=== PATIENT | male | born 1940 | race Caucasian/White ===

== ENCOUNTER 2022-08-07 08:47 | Emergency (ER) | payer OTHER ==
[~2022-08-07] VITALS: Ht 185.4 cm; Wt 61.7 kg
[~2022-08-07 08:47] MED LIST: CRUTCH2 USE; DIPH50; HYDMOR2 PO; OXYACE5T PO; OXYC10ER PO; TOBR.3OPSO OP
[2022-08-07 09:16] LABS: BASOPHILS ABSOLUTE AUTO 0.08 K/mm3 (0.00-0.23); BASOPHILS PERCENT AUTO 1 % (0-2); EOSINOPHILS ABSOLUTE AUTO 0.25 K/mm3 (0.00-0.68); EOSINOPHILS PERCENT AUTO 3 % (0-6); Hematocrit 41.9 % (37.0-53.0); Hemoglobin 13.3 g/dL (13.5-17.5); IMMATURE GRAN ABSOLUTE AUTO 0.02 K/mm3 (0.00-0.10); IMMATURE GRAN PERCENT AUTO 0 % (0-1); LYMPHOCYTES ABSOLUTE AUTO 1.55 K/mm3 (0.84-5.20); LYMPHOCYTES PERCENT AUTO 21 % (21-46); MONOCYTES ABSOLUTE AUTO 0.59 K/mm3 (0.16-1.47); MONOCYTES PERCENT AUTO 8 % (4-13); Mean Corpuscular HGB 30.4 pg (26.0-34.0); Mean Corpuscular HGB Conc 31.7 g/dL (31.5-36.5); Mean Corpuscular Volume 96 fL (80-100); Mean Platelet Volume 8.9 fL (9.1-12.4); NEUTROPHILS ABSOLUTE AUTO 5.02 K/mm3 (1.96-9.15); NEUTROPHILS PERCENT AUTO 67 % (41-73); Platelet Count 279 K/mm3 (150-400); RDW Coefficient Variation 14.2 % (11.7-14.2); RDW Standard Deviation 50.3 fL (35.1-46.3); Red Blood Cell Count 4.37 M/mm3 (4.30-5.90); White Blood Cell Count 7.51 K/mm3 (4.00-11.30)
[2022-08-07 09:31] LABS: Bun/Creatinine Ratio 16.6 (12.0-20.0); Calcium, Blood 9.8 mg/dL (8.5-10.1); Creatinine, Blood 0.78 mg/dL (0.60-1.20)
[2022-08-07] MEDS ORDERED: BUPRENORPHINE HC8 MG (10:30)
[2022-08-07] MEDS ORDERED: XARELTO20 MG PO (11:03)
[2022-08-07] MEDS ORDERED: METO25ER PO (11:03)
== END 2022-08-07 11:18 | disposition home or self-care (01) ==
LOC: ER 08:47
PROVIDERS: Student in an Organized Health Care Education/Training Program
DX: I48.92 Unspecified atrial flutter (principal); I10 Essential (primary) hypertension; F17.210 Nicotine dependence, cigarettes, uncomplicated
CPT/HCPCS: 36415; 80048; 83735; 85025; 93005; 93010; A9270; J3475; J7030

== ENCOUNTER → 2023-05-13 | Outpatient (CLI) | payer OTHER | LOC: LAB 06:48 | DX: E78.5 Hyperlipidemia, unspecified (principal) ==

== ENCOUNTER 2023-06-01 09:27 | Emergency (ER) | payer OTHER ==
[~2023-06-01] VITALS: Ht 170.2 cm; Wt 69.8 kg
[~2023-06-01 09:27] MED LIST changes: +BUPRENORPHINE HC8 MG; +METO25ER PO; +XARELTO20 MG PO
[2023-06-01] MEDS ORDERED: WARF5 PO (09:54)
[2023-06-01] MEDS ORDERED: TAMS.4ER PO (09:54)
[2023-06-01] MEDS ORDERED: CALCIUM 600-VI1 EAC7 PO (09:55)
[2023-06-01] MEDS ORDERED: ERLEADA240 MG PO (09:55)
[2023-06-01] MEDS ORDERED: METO25ER PO (09:55)
[2023-06-01] MEDS ORDERED: BUPROPION XL150 M1 PO (09:56)
[2023-06-01] MEDS ORDERED: ATOR20 PO (09:56)
[2023-06-01 10:05] VITALS: BP 113/71
[2023-06-01 10:28] LABS: BASOPHILS ABSOLUTE AUTO 0.06 K/mm3 (0.00-0.23); BASOPHILS PERCENT AUTO 1 % (0-2); EOSINOPHILS ABSOLUTE AUTO 0.12 K/mm3 (0.00-0.68); EOSINOPHILS PERCENT AUTO 1 % (0-6); Hematocrit 38.5 % (37.0-53.0); Hemoglobin 12.7 g/dL (13.5-17.5); IMMATURE GRAN ABSOLUTE AUTO 0.02 K/mm3 (0.00-0.10); IMMATURE GRAN PERCENT AUTO 0 % (0-1); LYMPHOCYTES ABSOLUTE AUTO 1.26 K/mm3 (0.84-5.20); LYMPHOCYTES PERCENT AUTO 15 % (21-46); MONOCYTES ABSOLUTE AUTO 0.84 K/mm3 (0.16-1.47); MONOCYTES PERCENT AUTO 10 % (4-13); Mean Corpuscular HGB 29.7 pg (26.0-34.0); Mean Corpuscular Volume 90 fL (80-100); Mean Platelet Volume 9.6 fL (9.1-12.4); NEUTROPHILS ABSOLUTE AUTO 6.23 K/mm3 (1.96-9.15); NEUTROPHILS PERCENT AUTO 73 % (41-73); Platelet Count 311 K/mm3 (150-400); RDW Coefficient Variation 13.9 % (11.7-14.2); RDW Standard Deviation 45.7 fL (35.1-46.3); Red Blood Cell Count 4.28 M/mm3 (4.30-5.90); White Blood Cell Count 8.53 K/mm3 (4.00-11.30)
[2023-06-01 10:36] LABS: International Normalized Ratio 2.56; Prothrombin Time Results 25.5 Sec (9.7-11.5)
[2023-06-01 11:42] LABS: Calcium, Blood 10.1 mg/dL (8.5-10.1); Creatinine, Blood 1.13 mg/dL (0.60-1.20); Magnesium, Blood 1.8 mg/dL (1.6-2.4); Potassium, Blood 3.9 mmol/L (3.5-5.5)
[2023-06-01 12:45] LABS: Source, Urine Clean Catch
[2023-06-01 12:53] LABS: Appearance, Urine Clear (Clear); Bilirubin, Urine Neg (Neg); Blood, Urine 1+ (Neg); Color, Urine Yellow (P-Yellow); Glucose Qualitative, Urine Neg (Neg); Ketones, Urine 2+ (Neg); Leukocyte Esterase, Urine Neg (Neg); Nitrite, Urine Neg (Neg); Protein, Urine 2+ (Neg); Specific Gravity, Urine 1.025 (1.003-1.022); Urobilinogen, Urine NORM (Normal)
[2023-06-01 13:08] LABS: Bacteria Few /hpf; Hyaline Casts 0-2 /lpf (0-2); Mucus Light (0-Heavy); Red Blood Cells, Urine 0-2 /hpf (0-2); Squamous Epithelial Cells Rare /hpf (Few)
[2023-06-01] MEDS ORDERED: METO50ER PO (13:30)
== END 2023-06-01 13:41 | disposition home or self-care (01) ==
LOC: ER 09:27
PROVIDERS: Student in an Organized Health Care Education/Training Program
DX: I48.92 Unspecified atrial flutter (principal); R53.1 Weakness; Z79.899 Other long term (current) drug therapy; Z79.891 Long term (current) use of opiate analgesic; I10 Essential (primary) hypertension; Z85.118 Personal history of other malignant neoplasm of bronchus and lung; Z85.46 Personal history of malignant neoplasm of prostate; F17.210 Nicotine dependence, cigarettes, uncomplicated
CPT/HCPCS: 80048; 81001; 83735; 85025; 85610; 93005; 93010; 96360; 99285-25; A9270; J7030

== ENCOUNTER 2023-07-14 11:16 | Emergency (ER) | payer OTHER ==
[~2023-07-14] VITALS: Ht 182.9 cm; Wt 55.8 kg
[~2023-07-14 11:16] MED LIST changes: +ATOR20 PO; +BUPROPION XL150 M1 PO; +CALCIUM 600-VI1 EAC7 PO; +ERLEADA240 MG PO; +METO50ER PO; +TAMS.4ER PO; +WARF5 PO
[2023-07-14 12:31] LABS: BASOPHILS ABSOLUTE AUTO 0.02 K/mm3 (0.00-0.23); BASOPHILS PERCENT AUTO 1 % (0-2); EOSINOPHILS ABSOLUTE AUTO 0.03 K/mm3 (0.00-0.68); EOSINOPHILS PERCENT AUTO 1 % (0-6); Hematocrit 36.8 % (37.0-53.0); Hemoglobin 12.1 g/dL (13.5-17.5); IMMATURE GRAN ABSOLUTE AUTO 0.01 K/mm3 (0.00-0.10); IMMATURE GRAN PERCENT AUTO 0 % (0-1); LYMPHOCYTES ABSOLUTE AUTO 0.21 K/mm3 (0.84-5.20); LYMPHOCYTES PERCENT AUTO 7 % (21-46); MONOCYTES ABSOLUTE AUTO 0.66 K/mm3 (0.16-1.47); MONOCYTES PERCENT AUTO 23 % (4-13); Mean Corpuscular HGB 30.1 pg (26.0-34.0); Mean Corpuscular HGB Conc 32.9 g/dL (31.5-36.5); Mean Corpuscular Volume 92 fL (80-100); Mean Platelet Volume 9.5 fL (9.1-12.4); NEUTROPHILS ABSOLUTE AUTO 1.98 K/mm3 (1.96-9.15); NEUTROPHILS PERCENT AUTO 68 % (41-73); Platelet Count 213 K/mm3 (150-400); RDW Coefficient Variation 15.4 % (11.7-14.2); RDW Standard Deviation 51.2 fL (35.1-46.3); Red Blood Cell Count 4.02 M/mm3 (4.30-5.90); White Blood Cell Count 2.91 K/mm3 (4.00-11.30)
[2023-07-14 12:52] LABS: Albumin, Blood 3.2 g/dL (3.4-5.0); Albumin/Globulin Ratio 1.2 (0.8-1.8); Bilirubin, Total 0.4 mg/dL (0.1-1.0); Bun/Creatinine Ratio 16.6 (12.0-20.0); Calcium, Blood 8.7 mg/dL (8.5-10.1); Creatinine, Blood 0.78 mg/dL (0.60-1.20); Globulin, Blood 2.7 g/dL (2.2-4.0); Potassium, Blood 3.6 mmol/L (3.5-5.5); Total Protein, Blood 5.9 g/dL (6.4-8.2)
[2023-07-14 15:47] LABS: Source, Urine Straight Cath
[2023-07-14 15:52] LABS: International Normalized Ratio 1.9; Prothrombin Time Results 19.2 Sec (9.7-11.5)
[2023-07-14 16:08] LABS: Appearance, Urine Clear (Clear); Bilirubin, Urine Neg (Neg); Blood, Urine 1+ (Neg); Color, Urine Yellow (P-Yellow); Glucose Qualitative, Urine Neg (Neg); Ketones, Urine 1+ (Neg); Leukocyte Esterase, Urine Neg (Neg); Nitrite, Urine Neg (Neg); Protein, Urine 2+ (Neg); Urobilinogen, Urine NORM (Normal)
[2023-07-14 16:28] LABS: Influenza A, PCR NEGATIVE (NEGATIVE); Influenza B, PCR NEGATIVE (NEGATIVE); Resp Syncytial Virus, PCR NEGATIVE (NEGATIVE)
[2023-07-14 16:59] LABS: SARS-Cov-2 (COVID-19) PCR, MMC POSITIVE (NEGATIVE)
[2023-07-14 17:15] VITALS: BP 119/73
[2023-07-14 17:17] LABS: Amorphous Light (0-Heavy); Bacteria Few /hpf; Calcium Oxalate Crystals Few /hpf; Hyaline Casts 0-2 /lpf (0-2); Mucus Light (0-Heavy); Squamous Epithelial Cells Rare /hpf (Few)
[2023-07-14] MEDS ORDERED: ENSURE PLUS HI237 ML PO (18:12)
== END 2023-07-14 19:22 | disposition home or self-care (01) ==
LOC: ER 11:16
PROVIDERS: Emergency Medicine; Physician Assistant
DX: U07.1 COVID-19 (principal); R53.1 Weakness; D72.819 Decreased white blood cell count, unspecified; R63.0 Anorexia; D72.821 Monocytosis (symptomatic); I48.92 Unspecified atrial flutter; I44.30 Unspecified atrioventricular block; I49.1 Atrial premature depolarization; C61 Malignant neoplasm of prostate; F17.210 Nicotine dependence, cigarettes, uncomplicated; Z68.1 Body mass index [BMI] 19.9 or less, adult; Z88.8 Allergy status to other drugs, medicaments and biological substances; Z79.899 Other long term (current) drug therapy; Z79.01 Long term (current) use of anticoagulants
CPT/HCPCS: 0241U; 51701; 71046; 80053; 81001; 83880; 84484; 85025; 85610; 93005; 93010; 99285-25

== ENCOUNTER 2023-07-30 11:41 | Observation (INO) | payer OTHER ==
[~2023-07-30] VITALS: Ht 182.9 cm; Wt 51.6 kg
[~2023-07-30 11:41] MED LIST changes: +ENSURE PLUS HI237 ML PO
[2023-07-30 12:43] LABS: Hematocrit 36.1 % (37.0-53.0); Hemoglobin 11.9 g/dL (13.5-17.5); Mean Corpuscular HGB 30.7 pg (26.0-34.0); Mean Corpuscular Volume 93 fL (80-100); Mean Platelet Volume 9.3 fL (9.1-12.4); Platelet Count 260 K/mm3 (150-400); RDW Coefficient Variation 17.5 % (11.7-14.2); RDW Standard Deviation 57.1 fL (35.1-46.3); Red Blood Cell Count 3.87 M/mm3 (4.30-5.90); White Blood Cell Count 5.25 K/mm3 (4.00-11.30)
[2023-07-30 12:53] LABS: Albumin, Blood 2.9 g/dL (3.4-5.0); Albumin/Globulin Ratio 1.1 (0.8-1.8); Bilirubin, Total 0.4 mg/dL (0.1-1.0); Bun/Creatinine Ratio 19.6 (12.0-20.0); Calcium, Blood 8.8 mg/dL (8.5-10.1); Creatinine, Blood 0.87 mg/dL (0.60-1.20); Globulin, Blood 2.7 g/dL (2.2-4.0); Potassium, Blood 4.3 mmol/L (3.5-5.5); Total Protein, Blood 5.6 g/dL (6.4-8.2)
[2023-07-30 13:06] LABS: BASOPHILS PERCENT MAN 0 % (0-2); EOSINOPHILS ABSOLUTE MAN 0.26 K/mm3 (0.00-0.68); EOSINOPHILS PERCENT MAN 5 % (0-6); LYMPHOCYTES ABSOLUTE MAN 0.42 K/mm3 (0.84-5.20); LYMPHOCYTES PERCENT MAN 8 % (21-46); MONOCYTES ABSOLUTE MAN 0.42 K/mm3 (0.16-1.47); MONOCYTES PERCENT MAN 8 % (4-13); NEUTROPHILS ABSOLUTE MAN 4.14 K/mm3 (1.96-9.15); SEG NEUTROPHILS PERCENT MAN 79 % (41-73); TOTAL CELLS COUNTED 100
[2023-07-30 13:31] LABS: International Normalized Ratio 1.55; Prothrombin Time Results 15.9 Sec (9.7-11.5)
--- NOTE | 2023-07-30 20:40 | NUR ---
NEW ADMIT PT ARRIVED TO ROOM 303 AT 2039 FROM THE ER BY JULIA. PT TRANSFERED TO HOSPITAL BED WITH TRANSFER SHEET AND 4 PERSON ASSIST. PT CAME WITH FLUIDS RUNNING-SEE EMAR.
[2023-07-30 20:46] VITALS: BP 158/97
[2023-07-31 03:38] VITALS: BP 120/55
--- NOTE | 2023-07-31 04:30 | NUR ---
HOSPITAL CALLED. DR. GARCIA CALLED REGARDING PT HAVING PELVIC/ABD PAIN. PT REPORTS THE NEED TO URINATE BUT IS UNABLE. PT REPORTS THAT HE STRAIGHT CATHS HIMSELF AT HOME 5X A DAY. DR. GARCIA ORDERED FOR AN IUC.
[2023-07-31 05:57] LABS: Source, Urine Foley catheter
[2023-07-31 06:14] LABS: Appearance, Urine Clear (Clear); Bilirubin, Urine Neg (Neg); Blood, Urine 4+ (Neg); Color, Urine Yellow (P-Yellow); Glucose Qualitative, Urine Neg (Neg); Ketones, Urine Neg (Neg); Leukocyte Esterase, Urine Neg (Neg); Nitrite, Urine Neg (Neg); Protein, Urine 2+ (Neg); Urobilinogen, Urine NORM (Normal)
[2023-07-31 06:33] LABS: Bacteria Few /hpf; Red Blood Cells, Urine 25-50 /hpf (0-2); Squamous Epithelial Cells Few /hpf (Few); White Blood Cells, Urine 0-2 /hpf (0-5)
[2023-07-31 07:23] VITALS: BP 110/45
--- NOTE | 2023-07-31 07:40 | NUR ---
SHIFT SUMMARY PT IS A&O X4. PT IS COOPERATIVE WITH CARE AND PLEASANT. PT HAS A HISTORY OF URINARY RETENTION AND STRAIGHT CATHS AT HOME-ZALDIVAR PLACED THIS AM PER ORDER. PT IS ABLE TO MOVE FROM SIDE TO SIDE IN BED. PT IS TREMOROUS, AND C/O BEING COLD-NO FEVER NOTED. PT DENIES CHEST PAIN/PRESSURE/TIGHTNESS. PT HAS HAD LOOSE BMS THIS SHIFT-ATTENDS CLEAN AND IN PLACE. PT LIVES AT HOME WITH SIGNIFICANT OTHER. PTS ARMS HAS SIGNIFICANT EDEMA AND LEAKS OUT FLUID. BED IS LOCKED AND IN THE LOWEST POSITION WITH CALL LIGHT IN REACH.
[2023-07-31 11:22] LABS: BASOPHILS ABSOLUTE AUTO 0.04 K/mm3 (0.00-0.23); BASOPHILS PERCENT AUTO 1 % (0-2); EOSINOPHILS ABSOLUTE AUTO 0.51 K/mm3 (0.00-0.68); EOSINOPHILS PERCENT AUTO 10 % (0-6); Hematocrit 34.2 % (37.0-53.0); Hemoglobin 11.3 g/dL (13.5-17.5); IMMATURE GRAN ABSOLUTE AUTO 0.01 K/mm3 (0.00-0.10); IMMATURE GRAN PERCENT AUTO 0 % (0-1); LYMPHOCYTES ABSOLUTE AUTO 0.28 K/mm3 (0.84-5.20); LYMPHOCYTES PERCENT AUTO 6 % (21-46); MONOCYTES ABSOLUTE AUTO 0.51 K/mm3 (0.16-1.47); MONOCYTES PERCENT AUTO 10 % (4-13); Mean Corpuscular HGB 30.6 pg (26.0-34.0); Mean Corpuscular Volume 93 fL (80-100); Mean Platelet Volume 8.9 fL (9.1-12.4); NEUTROPHILS ABSOLUTE AUTO 3.69 K/mm3 (1.96-9.15); NEUTROPHILS PERCENT AUTO 73 % (41-73); Platelet Count 213 K/mm3 (150-400); RDW Coefficient Variation 17.2 % (11.7-14.2); RDW Standard Deviation 56.9 fL (35.1-46.3); Red Blood Cell Count 3.69 M/mm3 (4.30-5.90); White Blood Cell Count 5.04 K/mm3 (4.00-11.30)
[2023-07-31 11:36] LABS: International Normalized Ratio 1.55; Prothrombin Time Results 15.9 Sec (9.7-11.5)
[2023-07-31 11:41] LABS: Bun/Creatinine Ratio 15.9 (12.0-20.0); Calcium, Blood 8.4 mg/dL (8.5-10.1); Creatinine, Blood 0.82 mg/dL (0.60-1.20); Phosphorus, Blood 2.7 mg/dL (2.5-4.9); Potassium, Blood 3.7 mmol/L (3.5-5.5)
[2023-07-31 15:56] VITALS: BP 118/61
--- NOTE | 2023-07-31 18:38 | NUR ---
SHIFT SUMMARY: PATIENT IS A/OX4. CALM, PLEASANT AND COOPERATIVE c CARE PROVIDED. VISIBLE TREMORS TO BUE'S. EDEMA TO BUE'S VERY DRY FLAKY AND SKIN CRACKING c MODERATE SEROSANGUINEOUS DRAINAGE COMING OUT AND RASHES SCATTERED T/O. PATIENT DENIES ITCHINESS TO AFFECTED SITE. DR. OCAMPO (ERP CONSULTANT) CAME AND SAW PATIENT TODAY FOR CONSULT. SKIN BIOPSY WAS DONE BY DR. OCAMPO, AND CULTURE TO RASH BUE'S WAS SENT OUT TO LAB AWATING FOR RESULT. RECEIVED A CALL FROM SIG OTHER NAME DENIS, UPDATE GIVEN TO DENIS. PER DENIS "WHEN PATIENT FIRST DAY THE RASH APPEARS TO BUE'S HE WAS USING HER OIL OF OLAY FIRMING LOTION c SCENTED." DENIS ADDED SINCE THEN PATIENT ARMS APPEARS MORE ANGRY LOOKING AND THE LOTION DID NOT HELPS." PATIENT IS INCONTINENCE OF BOWELS, JUSTICE CARE AND ATTENDS CHANGED PRN. PATIENT HAD VENOUS DUPLEX STUDY TO BUE'S DONE THIS PM, PER HARMAN ([facility]) "PATIENT IS POSITIVE FOR DVT TO L BRACHIAL ARM AND NO SUPERFACIAL THROMBUS NOTED." NOTIFIED DR. LIZARRAGA c THIS CONCERN, DISCHARGE ORDER WAS HELD. ZALDIVAR WAS DC'D AT AROUND 1750. PATIENT RECEIVED 10 MG OF PO WARFARIN AT 1800'S. PATIENT DENIES CP/PRESSURE, SOB, N/V, DIZZINESS AND GENERALIZED PAIN. PATIENT WORKS c PT MOBILITY THIS AM. PER PT DC'D HOME PRIOR TO LIVING SITUATION c NO FURTHER FOLLOW UP TX. VITAL SIGNS REVIEWED. PIV TO HOA SALINE LOCKED. CALL LIGHT IN REACH.
[2023-07-31 19:06] VITALS: BP 107/71
--- NOTE | 2023-08-01 03:37 | NUR ---
HOSPITALIST CALLED. DR. GARCIA CALLED APPROX 0245 FOR PATIENTS URINARY RETENTION, PT STATES HE STRAIGHT CATHS AT HOME, AND HIS ZALDIVAR WAS ROMOVED ON 07/31/23. ASKED DOCTOR IF WE COULD STRAIGHT CATH PATIENT PRN FOR SYMPTOMS OF RETENTION. DOCTOR GARCIA ORDERED FOR Q6H STRAIGHT CATH FOR BLADDER SCAN VOLUME >200ML OR SYMPTOMS OF URINARY RETENTION, AND BLADDER SCAN Q6H PRN.
[2023-08-01 03:52] VITALS: BP 113/75
--- NOTE | 2023-08-01 05:45 | NUR ---
SHIFT SUMMARY PATIENT IS A&O X4, COOPERATIVE WITH CARE, PLEASANT, ABLE TO MAKE NEEDS KNOW, AND CALLS APPROPRIATELY. PATIENT STATES HE FEELS BETTER THAN HE DID YESTERDAY. PATIENT HAS SLET OFF AND ON T/O SHIFT WITH RESPIRATIONS EQUAL AND UNLABORED. STOOLS HAVE BEEN LOOSE THIS SHIFT. PT REPORTS THAT HIS TREMORS HAVE DECREASED SINCE ADMITTANCE. DENIES CHEST PAIN/PRESSURE/TIGHTNESS. PAIN ASSESSED-PATIENT KALA PAIN. BED IS LOCKED IN THE LOWEST POSITION WITH CALL LIGHT IN REACH FOR SAFETY. NO S/S OF DISTRESS NOTED AT THIS TIME.
[2023-08-01 06:18] LABS: International Normalized Ratio 1.91; Prothrombin Time Results 19.3 Sec (9.7-11.5)
[2023-08-01 07:10] VITALS: BP 106/65
[2023-08-01] MEDS ORDERED: ENSURE PLUS HI237 ML PO (10:06)
[2023-08-01] MEDS ORDERED: TRIDERM28.4 GM TOP (10:10)
[2023-08-01] MEDS ORDERED: VISBIOME 112.51 EACH PO (10:11)
[2023-08-01] MEDS ORDERED: Keflex500 MG PO (10:12)
--- NOTE | 2023-08-01 12:47 | NUR ---
SHIFT/DISCHARGE SUMMARY: PATIENT IS A/OX4. CALM, PLEASANT AND COOPERATIVE c CARE PROVIDED. PATIENT DENIES CP/PRESSURE, SOB, N/V AND DIZZINESS. VISIBLE TREMORS TO BUE'S. RASHES AND SWELLING TO BUE'S SLIGHT IMPROVEMENT TODAY COMPARED YESTERDAY. PATIENT AMBULATES TO BATHROOM c SBA, SHOWERED AND LINEN CHANGED. TOP CREAM APPLIED TO RASHES PER ORDER. PATIENT RECEIVED SCHEDULED MEDS PER EMAR. PATIENT IS EATING AND DRINKING WELL. VITAL SIGNS REVIEWED. PIV TO HOA WAS DC'D BY AP PARRA. PATIENT DISCHARGE HOME. DISCHARGE INSTRUCTIONS PACKET GIVEN TO PATIENT. EDUCATE PATIENT REGARDING ADMITTING DX'S OF DRUG EXANTHEM, S/S, TX, TO FOLLOW c DR. OCAMPO (NET LEAD DEVELOPER) TOMORROW 08/02/23 AT 1230, INR CHECK IN 2 DAYS c PCP, SELF CARE AND TO TAKE MEDICATIONS PRESCRIBED. PATIENT AND DENIS (SIG OTHER) VERBALIZED UNDERSTANDING AND NO FURTHER QUESTIONS. RX WAS FAXED TO PATIENT PREFERRED PHARMACY ([facility]). ALL PATIENT PERSONAL BELONGINGS WERE SENT HOME c THE PATIENT. PATIENT LEFT THE ROOM AT AROUND 1205 AND WAS TRANSPORTED VIA WHEELCHAIR BY THIS RN TO PATIENT ENTRANCE.
== END 2023-08-01 12:05 | disposition home or self-care (01) ==
LOC: ER 11:41 → MEDS 11:42 → ER 07-31 16:50 → MEDS 07-31 16:50
PROVIDERS: Emergency Medicine; Student in an Organized Health Care Education/Training Program; ADMIT Internal Medicine
DX: L27.0 Generalized skin eruption due to drugs and medicaments taken internally (principal); I48.92 Unspecified atrial flutter; E87.20 Acidosis, unspecified; E44.0 Moderate protein-calorie malnutrition; L03.116 Cellulitis of left lower limb; L03.115 Cellulitis of right lower limb; I82.622 Acute embolism and thrombosis of deep veins of left upper extremity; I48.20 Chronic atrial fibrillation, unspecified; N13.8 Other obstructive and reflux uropathy; Z68.1 Body mass index [BMI] 19.9 or less, adult; Z66 Do not resuscitate; B08.8 Other specified viral infections characterized by skin and mucous membrane lesions; N40.1 Benign prostatic hyperplasia with lower urinary tract symptoms; F17.210 Nicotine dependence, cigarettes, uncomplicated; R33.8 Other retention of urine; T37.5X5A Adverse effect of antiviral drugs, initial encounter; I10 Essential (primary) hypertension; E78.5 Hyperlipidemia, unspecified; D64.9 Anemia, unspecified; M54.9 Dorsalgia, unspecified; G89.29 Other chronic pain; Z98.890 Other specified postprocedural states; Z88.8 Allergy status to other drugs, medicaments and biological substances; Z79.899 Other long term (current) drug therapy; Z85.46 Personal history of malignant neoplasm of prostate; Z79.01 Long term (current) use of anticoagulants; Z85.118 Personal history of other malignant neoplasm of bronchus and lung
CPT/HCPCS: 11104; 36415; 51702; 80048; 80053; 81001; 83605; 83735; 84100; 84145; 85025; 85610; 85651; 86140; 87070; 87077; 87186; 87205; 88305; 88312; 88313; 93005; 93010; 93970; 96361; 96365; 96376; 97161; 99285-25; A9270; G0378; J0696; J7030

== ENCOUNTER 2025-01-09 09:00 | Inpatient (IN) | payer OTHER ==
[~2025-01-09] VITALS: Ht 185.4 cm; Wt 54.6 kg
[~2025-01-09 09:00] MED LIST changes: +Keflex500 MG PO; +TRIDERM28.4 GM TOP; +VISBIOME 112.51 EACH PO
[2025-01-09] MEDS ORDERED: Aspirin 325 MG Tab PO ONE (09:20)
[2025-01-09 09:33] LABS: BASOPHILS ABSOLUTE AUTO 0.02 K/mm3 (0.00-0.23); BASOPHILS PERCENT AUTO 0 % (0-2); EOSINOPHILS ABSOLUTE AUTO 0.01 K/mm3 (0.00-0.68); EOSINOPHILS PERCENT AUTO 0 % (0-6); Hematocrit 43.6 % (37.0-53.0); Hemoglobin 14.1 g/dL (13.5-17.5); IMMATURE GRAN ABSOLUTE AUTO 0.04 K/mm3 (0.00-0.10); IMMATURE GRAN PERCENT AUTO 0 % (0-1); LYMPHOCYTES ABSOLUTE AUTO 0.46 K/mm3 (0.84-5.20); LYMPHOCYTES PERCENT AUTO 5 % (21-46); MONOCYTES ABSOLUTE AUTO 0.91 K/mm3 (0.16-1.47); MONOCYTES PERCENT AUTO 10 % (4-13); Mean Corpuscular HGB 31.6 pg (26.0-34.0); Mean Corpuscular HGB Conc 32.3 g/dL (31.5-36.5); Mean Corpuscular Volume 98 fL (80-100); Mean Platelet Volume 8.8 fL (9.1-12.4); NEUTROPHILS PERCENT AUTO 85 % (41-73); Platelet Count 424 K/mm3 (150-400); RDW Coefficient Variation 14.3 % (11.7-14.2); RDW Standard Deviation 51.3 fL (35.1-46.3); Red Blood Cell Count 4.46 M/mm3 (4.30-5.90); White Blood Cell Count 9.54 K/mm3 (4.00-11.30)
[2025-01-09 09:46] LABS: Albumin, Blood 2.5 g/dL (3.4-5.0); Albumin/Globulin Ratio 0.6 (0.8-1.8); Bilirubin, Total 0.9 mg/dL (0.1-1.0); Bun/Creatinine Ratio 17.7 (12.0-20.0); Calcium, Blood 9.4 mg/dL (8.5-10.1); Creatinine, Blood 0.79 mg/dL (0.60-1.20); Globulin, Blood 4.2 g/dL (2.2-4.0); Total Protein, Blood 6.7 g/dL (6.4-8.2)
[2025-01-09] MEDS ORDERED: MethylPREDNISolone Sod Succ 125 MG Vial IV ONE (10:10)
[2025-01-09] MEDS ORDERED: Ipratropium/Albuterol SulF 2.5-0.5MG/3 ML Amp INH ONE (10:10)
[2025-01-09] MEDS ORDERED: Albuterol 2.5 MG/3 ML VIAL INH SCH (10:15)
[2025-01-09] MEDS ORDERED: Ipratropium Bromide INH 0.02% 0.5 mg/2.5ML Vial INH SCH (10:15)
[2025-01-09 10:22] LABS: Base Excess Venous 11.5 mmol/L; Bicarbonate Venous 32.1 mmol/L (24.0-30.0); PCO2 Venous 61.9 mmHg (38-42); pH Blood Venous 7.38 (7.34-7.37)
[2025-01-09] MEDS ORDERED: Azithromycin 500 MG in NS 250 ML IV ONE (10:25)
[2025-01-09] MEDS ORDERED: CefTRIAXone Sodium 1,000 MG in NS 100 ML IV ONE (10:25)
[2025-01-09] MEDS ORDERED: Diltiazem HCl 5 MG / ML 5ML Vial IV ONE (11:45)
[2025-01-09] MEDS ORDERED: FENTANYL1 EAC7 TOP (12:01)
[2025-01-09] MEDS ORDERED: METO25ER PO (12:02)
[2025-01-09] MEDS ORDERED: LORA10ER PO (12:04)
[2025-01-09] MEDS ORDERED: GABA300 PO (12:04)
[2025-01-09] MEDS ORDERED: OXYC5 PO (12:05)
[2025-01-09] MEDS ORDERED: Lactated Ringer's 1,000 ML IV SCH (12:05)
[2025-01-09] MEDS ORDERED: GEMTESA75 MG PO (12:06)
[2025-01-09 12:13] LABS: Free Thyroxine 1.37 ng/dL (0.70-1.60); Magnesium, Blood 2.2 mg/dL (1.6-2.4); Thyroid Stimulating Hormone 0.753 uIU/mL (0.360-4.800)
[2025-01-09 13:02] LABS: Source, Urine Clean Catch
[2025-01-09 13:06] LABS: Appearance, Urine Hazy (Clear); Blood, Urine 5+ (Neg); Color, Urine Amber (P-Yellow); Glucose Qualitative, Urine Neg (Neg); Ketones, Urine 1+ (Neg); Leukocyte Esterase, Urine 1+ (Neg); Nitrite, Urine Neg (Neg); Protein, Urine 2+ (Neg); Urobilinogen, Urine 1+ (Normal)
[2025-01-09 13:25] LABS: Bilirubin, Urine 1+ (Neg)
[2025-01-09 13:26] LABS: Bacteria Many /hpf; Hyaline Casts 0-2 /lpf (0-2); Mucus Light (0-Heavy); Red Blood Cells, Urine 25-50 /hpf (0-2); Squamous Epithelial Cells Rare /hpf (Few)
[2025-01-09] MEDS ORDERED: Digoxin 0.25 MG in NS 4 ML IV ONE (13:55)
[2025-01-09 14:25] LABS: Prothrombin Time Results >90.0 Sec (9.7-11.5)
[2025-01-09 14:26] LABS: International Normalized Ratio >10.00
[2025-01-09] MEDS ORDERED: Phytonadione 5 MG Tab PO STA (14:34)
[2025-01-09] MEDS ORDERED: Potassium Chl 10MEQ/Water100ML 100 ML IV ONE (14:45)
[2025-01-09] MEDS ORDERED: Potassium Chloride 20 MEQ/15 ML UDC PO ONE (15:30)
[2025-01-09 15:36] LABS: Hematocrit 38.7 % (37.0-53.0); Hemoglobin 12.4 g/dL (13.5-17.5); Mean Corpuscular HGB 31.4 pg (26.0-34.0); Mean Corpuscular Volume 98 fL (80-100); Mean Platelet Volume 9.1 fL (9.1-12.4); Platelet Count 413 K/mm3 (150-400); RDW Coefficient Variation 14.5 % (11.7-14.2); Red Blood Cell Count 3.95 M/mm3 (4.30-5.90); White Blood Cell Count 12.55 K/mm3 (4.00-11.30)
[2025-01-09 18:02] VITALS: BP 102/87
[2025-01-09] MEDS ORDERED: OxyCODONE HCL 5 MG TAB PO PRN (18:25)
[2025-01-09] MEDS ORDERED: Ipratropium/Albuterol SulF 2.5-0.5MG/3 ML Amp INH SCH (18:25)
[2025-01-09] MEDS ORDERED: Albuterol 2.5 MG/3 ML VIAL INH PRN (18:25)
[2025-01-09] MEDS ORDERED: FentaNYL 50 MCG Patch TOP SCH (18:25)
[2025-01-09] MEDS ORDERED: MethylPREDNISolone Sod Succ 125 MG Vial IV SCH (18:34)
[2025-01-09] MEDS ORDERED: Digoxin 0.25 MG/ML 2ML Amp IV SCH (20:00)
[2025-01-09 20:24] LABS: Base Excess Venous 8.6 mmol/L; Bicarbonate Venous 30.8 mmol/L (24.0-30.0); pH Blood Venous 7.41 (7.34-7.37)
[2025-01-09] MEDS ORDERED: Triamcinolone Acet 0.5% Cream 15 gm TOP SCH (21:00)
[2025-01-09] MEDS ORDERED: Lactobacil 2-S.Thermo-Bifido 1 1 Cap PO SCH (21:00)
[2025-01-09] MEDS ORDERED: Gabapentin 300 MG Cap PO SCH (21:00)
[2025-01-09 21:09] VITALS: BP 105/59
[2025-01-09 21:21] VITALS: BP 114/69
[2025-01-09 22:26] LABS: Hematocrit 37.3 % (37.0-53.0); Hemoglobin 12.1 g/dL (13.5-17.5); Mean Corpuscular HGB 31.6 pg (26.0-34.0); Mean Corpuscular HGB Conc 32.4 g/dL (31.5-36.5); Mean Corpuscular Volume 97 fL (80-100); Mean Platelet Volume 8.8 fL (9.1-12.4); Platelet Count 414 K/mm3 (150-400); RDW Coefficient Variation 14.6 % (11.7-14.2); RDW Standard Deviation 52.3 fL (35.1-46.3); Red Blood Cell Count 3.83 M/mm3 (4.30-5.90); White Blood Cell Count 10.59 K/mm3 (4.00-11.30)
[2025-01-10 00:40] VITALS: BP 128/69
[2025-01-10 03:35] VITALS: BP 146/76
[2025-01-10 03:46] LABS: Hematocrit 36.6 % (37.0-53.0); Hemoglobin 11.7 g/dL (13.5-17.5); Mean Corpuscular HGB 31.5 pg (26.0-34.0); Mean Corpuscular Volume 98 fL (80-100); Mean Platelet Volume 8.9 fL (9.1-12.4); Platelet Count 402 K/mm3 (150-400); RDW Coefficient Variation 14.6 % (11.7-14.2); RDW Standard Deviation 52.6 fL (35.1-46.3); Red Blood Cell Count 3.72 M/mm3 (4.30-5.90); White Blood Cell Count 12.32 K/mm3 (4.00-11.30)
[2025-01-10 04:05] LABS: Albumin, Blood 2.1 g/dL (3.4-5.0); Albumin/Globulin Ratio 0.6 (0.8-1.8); Bilirubin, Total 0.5 mg/dL (0.1-1.0); Bun/Creatinine Ratio 23.3 (12.0-20.0); Calcium, Blood 9.1 mg/dL (8.5-10.1); Creatinine, Blood 0.6 mg/dL (0.60-1.20); Globulin, Blood 3.4 g/dL (2.2-4.0); Potassium, Blood 4.2 mmol/L (3.5-5.5); Total Protein, Blood 5.5 g/dL (6.4-8.2)
[2025-01-10 04:09] LABS: Prothrombin Time Results 49.4 Sec (9.7-11.5)
[2025-01-10 04:17] LABS: BAND PERCENT MAN 11 % (0-8); BASOPHILS PERCENT MAN 0 % (0-2); EOSINOPHILS PERCENT MAN 0 % (0-6); LYMPHOCYTES ABSOLUTE MAN 0.24 K/mm3 (0.84-5.20); LYMPHOCYTES PERCENT MAN 2 % (21-46); MONOCYTES ABSOLUTE MAN 0.24 K/mm3 (0.16-1.47); MONOCYTES PERCENT MAN 2 % (4-13); NEUTROPHILS ABSOLUTE MAN 11.82 K/mm3 (1.96-9.15); SEG NEUTROPHILS PERCENT MAN 85 % (41-73); TOTAL CELLS COUNTED 100
--- NOTE | 2025-01-10 04:29 | NUR ---
SHIFT SUMMARY. SHIFT HAS BEEN OVERALL UNREMARKABLE. PT HAS BEEN AOX4, PLEASANT, COOPERATIVE WITH CARE, ABLE TO MAKE NEEDS KNOWN. HAS BEEN ABLE TO REST COMFORTABLY THROUGHOUT MOST OF SHIFT. VITALS HAVE REMAINED STABLE. PT WAS TACHYCARDIC EARLY IN SHIFT WITH RATE >100 FOR MUCH OF FIRST PART OF SHIFT. AFTER ADMINISTERING IV DIGOXIN LATE, HR CAME DOWN <90 AND HAS BEEN RESTING IN THE 60s-80s RANGE THROUGHOUT MOST OF SHIFT. CONTINUES TO RUN AFLUTTER. BLOOD PRESSURE HAS BEEN STABLE, MOST RECENT SBP 146. O2 DEMANDS HAVE FLUCTUATED OVERNIGHT WITH BLEED IN ON CPAP BEING TUNED UP TO 10 L WITH SETTINGS ALSO BEING ADJUSTED FEW TIMES BY RT. OTHERWISE SHIFT HAS GONE WELL. BED LOCKED IN LOWEST POSITION. CALL LIGHT LEFT WITHIN REACH. CONTINUING TO MONITOR.
[2025-01-10 04:34] LABS: International Normalized Ratio 5.22
--- NOTE | 2025-01-10 05:14 | NUR ---
TOOK EKG THIS MORNING PER ORDER. EKG MACHINE ALERTED TO CRITICAL RESULT STEMI. REVIEWED ALONGSIDE OLD EKG WITH WILDLIFE REFUGE MANAGER [place] AND RESIDENT DR. ZAMBRANO. NO SIGNIFICANT CHANGES FROM PREVIOUS EKG, NO CAUSE FOR CONCERN. PT ASYMPTOMATIC, COMFORTABLE. VITALS STABLE. CONTINUING TO MONITOR.
[2025-01-10 07:36] VITALS: BP 127/74
[2025-01-10] MEDS ORDERED: NS 1,000 ML IV SCH (08:40)
[2025-01-10] MEDS ORDERED: Azithromycin 500 MG in NS 250 ML IV SCH (09:00)
[2025-01-10] MEDS ORDERED: CefTRIAXone Sodium 1,000 MG in NS 100 ML IV SCH (09:00)
[2025-01-10] MEDS ORDERED: Loratadine 10 MG Tab PO SCH (09:00)
[2025-01-10] MEDS ORDERED: Metoprolol Succinate 25 MG TABCR PO SCH (09:00)
[2025-01-10] MEDS ORDERED: APALUTAMIDE 240 MG PO SCH (09:00)
[2025-01-10] MEDS ORDERED: Digoxin 0.25 MG/ML 2ML Amp IV STA (09:46)
[2025-01-10 12:04] VITALS: BP 136/98
--- NOTE | 2025-01-10 12:25 | NUR ---
Met with the patient at his bedside. His s/o Gege has made it clear to bedside RN she is ready for hospice. The patient initially states he was hesitant about hospice, states his mom and dad both on hospice years ago, and it was a bad experience. However, after a lengthy conversation, pt states he's willing to "give it a try." He is adamant about going home today, and I have shared this information with CM. She is currently working on this.
[2025-01-10] MEDS ORDERED: DIGOX125 MC1 PO (17:08)
--- NOTE | 2025-01-10 17:41 | NUR ---
SHIFT SUMMARY: PT A&OX4 ANXIOUS AT START OF SHIFT. PT STATED HE WISHES TO GO HOME NO MATTER WHAT. PT EDUCATED ON DISEASE CONDITION, LEAVING AMA, AND HOSPICE CARE. PALLIATIVE CARE CONSULTED AND PT REPORTED HE WANTS TO MOVE FORWARD WITH HOSPICE CARE. PT COOPERATIVE WITH RECEIVING CARE IN HOSPITAL DURING SHIFT. 3L NC MAINTAIN SPO2 >92%. HOSPICE MET WITH PATIENT WITH SIGNIFICANT OTHER AT BEDSIDE. PT TO BE DISCHARED HOME ON HOSPICE. BED IS LOW AND LOCKED AND CALL LIGHT WITHIN REACH.
[2025-01-10] MEDS ORDERED: Tamsulosin HCl 0.4 MG Cap PO SCH (18:00)
[2025-01-11] MEDS ORDERED: Digoxin 0.125 MG Tab PO SCH (06:00)
== END 2025-01-10 18:40 | disposition hospice, home (50) | DRG 871 ==
LOC: ER 09:00 → PCU 12:30 → ERHOLD 12:30 → PCU 18:04
PROVIDERS: Student in an Organized Health Care Education/Training Program; ADMIT Family Medicine
PROC: 5A09357 Assistance with Respiratory Ventilation, Less than 24 Consecutive Hours, Continuous Positive Airway Pressure (ICD-10-PCS; principal; 2025-01-09)
PROC: 3E03329 Introduction of Other Anti-infective into Peripheral Vein, Percutaneous Approach (ICD-10-PCS; 2025-01-09)
DX: A41.9 Sepsis, unspecified organism (principal); E43 Unspecified severe protein-calorie malnutrition; J96.21 Acute and chronic respiratory failure with hypoxia; J96.22 Acute and chronic respiratory failure with hypercapnia; Z68.1 Body mass index [BMI] 19.9 or less, adult; J44.1 Chronic obstructive pulmonary disease with (acute) exacerbation; Z51.5 Encounter for palliative care; Z66 Do not resuscitate; I50.22 Chronic systolic (congestive) heart failure; I48.92 Unspecified atrial flutter; R64 Cachexia; N13.8 Other obstructive and reflux uropathy; R65.20 Severe sepsis without septic shock; R79.1 Abnormal coagulation profile; I11.0 Hypertensive heart disease with heart failure; G89.29 Other chronic pain; M54.9 Dorsalgia, unspecified; I48.91 Unspecified atrial fibrillation; I25.10 Atherosclerotic heart disease of native coronary artery without angina pectoris; E78.5 Hyperlipidemia, unspecified; N40.1 Benign prostatic hyperplasia with lower urinary tract symptoms; I95.9 Hypotension, unspecified; Z87.891 Personal history of nicotine dependence; Z88.8 Allergy status to other drugs, medicaments and biological substances; Z79.01 Long term (current) use of anticoagulants; Z85.46 Personal history of malignant neoplasm of prostate; Z85.118 Personal history of other malignant neoplasm of bronchus and lung
CPT/HCPCS: 36415; 71045; 71260; 80053; 81001; 82803; 83605; 83735; 83880; 84145; 84439; 84443; 84484; 85025; 85027; 85610; 85730; 87040; 87086; 93005; 93010; 93306; 93970; 94640; 94644; 94660; 94664; 94762; 96365; 96367; 96375; 99285-25; A9270; J0456; J0696; J1160; J2919; J3480; J7030; J7050; J7120; Q9967